=== PATIENT | female | born 1985 | race American Indian/Alaskan Native ===

== ENCOUNTER 2020-08-07 18:54 | Emergency (ER) | payer SELFPAY ==
[2020-08-07 22:32] VITALS: BP 115/62
[2020-08-07] MEDS ORDERED: IBUPROFEN 600 MG TAB PO ONE (23:12)
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
[2020-08-08] MEDS ORDERED: IBUPROFEN 800 MG TAB ONE (03:28)
== END 2020-08-08 03:30 | disposition home or self-care (01) ==
LOC: ED 18:54
DX: S43.491A Other sprain of right shoulder joint, initial encounter (principal); S63.8X1A Sprain of other part of right wrist and hand, initial encounter; S20.219A Contusion of unspecified front wall of thorax, initial encounter; M62.830 Muscle spasm of back; M54.5 Low back pain; Z88.1 Allergy status to other antibiotic agents; Z79.899 Other long term (current) drug therapy; V89.2XXA Person injured in unspecified motor-vehicle accident, traffic, initial encounter; Y93.89 Activity, other specified; Y92.488 Other paved roadways as the place of occurrence of the external cause; Y99.8 Other external cause status
CPT/HCPCS: 71046; 72100; 99283

== ENCOUNTER 2020-10-08 15:55 | Emergency (ER) | payer SELFPAY ==
[2020-10-08 16:05] VITALS: BP 113/75
--- NOTE | 2020-10-08 18:05 | Event Note ---
ED Screening Note Date of service: 10/08/20 Time: 18:04 ED Screening Note: Patient complains of left anterior neck swelling and pain with swallowing x yesterday Patient states her symptoms started a few hours after receiving a PRP injection in her right shoulder No fever/chills/sweats per patient Patient rates her pain as a 7/10 in severity This initial assessment/diagnostic orders/clinical plan/treatment(s) is/are subject to change based on patients health status, clinical progression and re- assessment by fellow clinical providers in the ED. Further treatment and workup at subsequent clinical providers discretion. Patient/guardian urged not to elope from the ED as their condition may be serious if not clinically assessed and managed. Initial orders include: Labs
[2020-10-08 18:39] LABS: Basophils # (Auto) 0.1 K/mm3 (0.0-0.1); Basophils % (Auto) 1.1 % (0.0-1.8); Eosinophils # (Auto) 0.3 K/mm3 (0.0-0.4); Eosinophils % (Auto) 2.8 % (0.0-4.3); Hematocrit 32.2 % (30.3-42.9); Hemoglobin 10.9 gm/dl (10.1-14.3); Lymphocytes # (Auto) 2.8 K/mm3 (1.2-5.4); Lymphocytes % (Auto) 27.4 % (13.4-35.0); Mean Corpuscular HGB Conc 34 % (30-34); Mean Corpuscular Volume 73 fl (79-97); Monocytes # (Auto) 0.8 K/mm3 (0.0-0.8); Monocytes % (Auto) 7.8 % (0.0-7.3); Platelet Count 226 K/mm3 (140-440); Red Blood Count 4.38 M/mm3 (3.65-5.03); Red Cell Distribution Width 15.1 % (13.2-15.2)
[2020-10-08 18:53] LABS: Blood Urea Nitrogen 11 mg/dL (7-17); Calcium 9.2 mg/dL (8.4-10.2); Hemolysis Index 7
[2020-10-08 18:59] LABS: BUN/Creatinine Ratio 18
--- NOTE | 2020-10-08 22:11 | Emergency Department Report ---
ED General Adult HPI - General Chief complaint: Sore Throat Stated complaint: NECK SWOLLEN AND HURTING/ LUMP ON (L) SIDE OF NECK Time Seen by Provider: 10/08/20 16:13 Source: patient Mode of arrival: Ambulatory Limitations: No Limitations - History of Present Illness Initial comments: Patient is a 34-year-old -[place] female with no past medical history presents to the ED with complaint of acute onset persistent painful swollen left anterior cervical lymph nodes for the last 2 days. 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 Patient states that this pain in the neck is severe with swallowing or speech. Patient denies fever, chills, sore throat, nausea, vomiting, headache, cough, nasal and sinus congestion, ear pain, chest pain or shortness of breath or headache. MD Complaint: Anterior left cervical lymphadenopathy with swelling -: Sudden, days(s) (2) Location: neck Radiation: non-radiation Severity scale (0 -10): 7 Quality: aching, sharp Consistency: constant Improves with: none Worsens with: eating Associated Symptoms: denies other symptoms. denies: confusion, chest pain, coug h, diaphoresis, fever/chills, headaches, loss of appetite, malaise, nausea/vomiting, rash, seizure, shortness of breath, syncope, weakness Treatments Prior to Arrival: none - Related Data Previous Rx's Medication Instructions Recorded Last Taken Type Baclofen 20 mg PO Q12H PRN #20 tablet 08/08/20 Unknown Rx traMADoL [Ultram] 50 mg PO Q6HR PRN #12 tablet 08/08/20 Unknown Rx Amoxicillin/Potassium Clav 1 each PO Q12H #20 tablet 10/08/20 Unknown Rx [Augmentin 875-125 Tablet] Fluconazole [Diflucan TAB] 200 mg PO QDAY #2 tablet 10/08/20 Unknown Rx Ibuprofen [Motrin 800 MG tab] 800 mg PO Q8HR PRN #30 tablet 10/08/20 Unknown Rx predniSONE [Deltasone] 40 mg PO QDAY #10 tab 10/08/20 Unknown Rx Allergies Allergy/AdvReac Type Severity Reaction Status Date / Time cephalexin [From Keflex] Allergy Hives Verified 10/08/20 16:01 ED Review of Systems ROS: Stated complaint: NECK SWOLLEN AND HURTING/ LUMP ON (L) SIDE OF NECK Other details as noted in HPI Constitutional: denies: chills, fever Eyes: denies: eye pain, eye discharge, vision change ENT: throat pain (Sore throat), other (Left anterior cervical lymphadenopathy with swelling). denies: ear pain Respiratory: denies: cough, shortness of breath, wheezing Cardiovascular: denies: chest pain, palpitations Endocrine: no symptoms reported Gastrointestinal: denies: abdominal pain, nausea, vomiting, diarrhea Genitourinary: denies: urgency, dysuria, discharge Musculoskeletal: denies: back pain, joint swelling, arthralgia Skin: denies: rash, lesions Neurological: denies: headache, weakness, paresthesias Psychiatric: denies: anxiety, depression Hematological/Lymphatic: denies: easy bleeding, easy bruising ED Past Medical Hx - Past Medical History Previous Medical History?: No - Surgical History Additional Surgical History: BREAST - Social History Smoking Status: Never Smoker Substance Use Type: None - Medications Home Medications: Home Medications Medication Instructions Recorded Confirmed Last Taken Type Baclofen 20 mg PO Q12H PRN #20 tablet 08/08/20 Unknown Rx traMADoL [Ultram] 50 mg PO Q6HR PRN #12 tablet 08/08/20 Unknown Rx Amoxicillin/Potassium Clav 1 each PO Q12H #20 tablet 10/08/20 Unknown Rx [Augmentin 875-125 Tablet] Fluconazole [Diflucan TAB] 200 mg PO QDAY #2 tablet 10/08/20 Unknown Rx Ibuprofen [Motrin 800 MG tab] 800 mg PO Q8HR PRN #30 tablet 10/08/20 Unknown Rx predniSONE [Deltasone] 40 mg PO QDAY #10 tab 10/08/20 Unknown Rx ED Physical Exam - General Limitations: No Limitations General appearance: alert, in no apparent distress - Head Head exam: Present: atraumatic, normocephalic, normal inspection - Eye Eye exam: Present: normal appearance, PERRL, EOMI Pupils: Present: normal accommodation - ENT ENT exam: Present: normal exam, mucous membranes moist, TM's normal bilaterally, normal external ear exam, other (Mild erythematous bilateral tonsils and oropharynx, no exudates or sign of peritonsillar abscess) - Neck Neck exam: Present: normal inspection, full ROM, lymphadenopathy (Palpable left anterior cervical lymphadenopathy and mild swelling) - Respiratory Respiratory exam: Present: normal lung sounds bilaterally. Absent: respiratory distress, wheezes, rales, rhonchi, chest wall tenderness, accessory muscle use, decreased breath sounds, prolonged expiratory - Cardiovascular Cardiovascular Exam: Present: regular rate, normal rhythm, normal heart sounds. Absent: systolic murmur, diastolic murmur, rubs, gallop - GI/Abdominal GI/Abdominal exam: Present: soft, normal bowel sounds. Absent: tenderness, guarding, rebound, hyperactive bowel sounds, hypoactive bowel sounds, organomegaly - Extremities Exam Extremities exam: Present: normal inspection, full ROM, normal capillary refill - Back Exam Back exam: Present: normal inspection, full ROM. Absent: tenderness, CVA tenderness (R), CVA tenderness (L), muscle spasm, paraspinal tenderness, vertebral tenderness - Neurological Exam Neurological exam: Present: alert, oriented X3, CN II-XII intact, normal gait, reflexes normal - Psychiatric Psychiatric exam: Present: normal affect, normal mood - Skin Skin exam: Present: warm, dry, intact, normal color. Absent: rash ED Course Vital Signs 10/08/20 16:01 Temperature 98.5 F Pulse Rate 90 Respiratory 20 Rate Blood Pressure 113/75 O2 Sat by Pulse 100 Oximetry ED Medical Decision Making - Lab Data Result diagrams: 10/08/20 18:14 10/08/20 18:14 - Medical Decision Making This is a 34-year-old -[place] female with no past medical history presents to the ED with complaint of acute onset persistent painful swollen left anterior cervical lymph nodes for the last 2 days. 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 Patient states that this pain in the neck is severe with swallowing or speech. In the ED, patient is alert and oriented x3 and is not in any distress with normal vital signs. Patient will discharge home on pain medication and antibiotics for suspected reactive or inflammatory anterior left cervical lymphadenopathy. Patient was discharged and advised to follow-up with her primary care physician in 7 to 10 days for reevaluation or return to the ED immediately if symptoms get worse. - Differential Diagnosis Lymphadenopathy; pharyngitis; URI Critical care attestation.: If time is entered above; I have spent that time in minutes in the direct care of this critically ill patient, excluding procedure time. ED Disposition Clinical Impression: Left cervical lymphadenopathy Acute pharyngitis, unspecified Qualifiers: Pharyngitis/tonsillitis etiology: other specified organisms Qualified Code(s): J02.8 - Acute pharyngitis due to other specified organisms Disposition: TO HOME OR SELFCARE Is pt being admited?: No Does the pt Need Aspirin: No Condition: Stable Instructions: Lymphadenopathy, Sore Throat, [id number]-hb-[id number] Additional Instructions: Take medication with food, drink plenty of fluids and follow-up with your primary care physician in 5 to 7 days for reevaluation. Return to the ED immediately if symptoms get worse. Prescriptions: Amoxicillin/Potassium Clav [Augmentin 875-125 Tablet] 1 each PO Q12H #20 tablet predniSONE [Deltasone] 40 mg PO QDAY #10 tab Fluconazole [Diflucan TAB] 200 mg PO QDAY #2 tablet Ibuprofen [Motrin 800 MG tab] 800 mg PO Q8HR PRN #30 tablet PRN Reason: Pain , Severe (7-10) Referrals: [facility] [Provider Group] - 3-5 Days Time of Disposition: 22:12 Print Language: GREEK
== END 2020-10-08 22:28 | disposition home or self-care (01) ==
LOC: ED 15:55
DX: J02.9 Acute pharyngitis, unspecified (principal); R59.0 Localized enlarged lymph nodes; Z79.899 Other long term (current) drug therapy; Z88.8 Allergy status to other drugs, medicaments and biological substances; Z98.890 Other specified postprocedural states
CPT/HCPCS: 36415; 80048; 85025; 86308; 99283